=== PATIENT | male | born 1935 | race Caucasian/White ===

== ENCOUNTER → 2021-02-15 | Outpatient (CLI) | payer MEDICARE, OTHER | END | disposition home or self-care (01) | LOC: RAD 13:01 | PROVIDERS: ATTEND Internal Medicine Infectious Disease | DX: N32.1 Vesicointestinal fistula (principal); K91.89 Other postprocedural complications and disorders of digestive system; T85.598D Other mechanical complication of other gastrointestinal prosthetic devices, implants and grafts, subsequent encounter; Y83.8 Other surgical procedures as the cause of abnormal reaction of the patient, or of later complication, without mention of misadventure at the time of the procedure | CPT/HCPCS: 74270 ==